=== PATIENT | female | born 1960 | race Caucasian/White ===

== ENCOUNTER 2023-02-12 16:54 | Emergency (ER) | payer BC ==
[~2023-02-12] VITALS: Ht 162.6 cm; Wt 80.7 kg
[2023-02-12 17:14] VITALS: BP 137/81; PULSE 72; RESP 18; TEMP 98.1; O2SAT 97
[2023-02-12 19:11] VITALS: BP 137/81; PULSE 72; RESP 18; TEMP 98.1; O2SAT 97
== END 2023-02-12 19:11 | disposition home or self-care (01) ==
LOC: MED 16:54
DX: S92.515A Nondisplaced fracture of proximal phalanx of left lesser toe(s), initial encounter for closed fracture (principal); J45.909 Unspecified asthma, uncomplicated; E11.9 Type 2 diabetes mellitus without complications; Z88.0 Allergy status to penicillin; Z88.7 Allergy status to serum and vaccine; W22.8XXA Striking against or struck by other objects, initial encounter; Y92.89 Other specified places as the place of occurrence of the external cause; Y93.89 Activity, other specified; Y99.8 Other external cause status
CPT/HCPCS: 73660; 99283